=== PATIENT | female | born 1980 | race African-American/Black ===

== ENCOUNTER 2018-08-22 00:16 | Outpatient (CLI) | payer MEDICAID ==
[2018-08-22 01:33] LABS: APPEARANCE,URINE CLEAR; BILIRUBIN,URINE NEGATIVE (NEGATIVE); COLOR,URINE YELLOW; GLUCOSE, URINE NEGATIVE (NEGATIVE); KETONES,URINE NEGATIVE (NEGATIVE); LEUKOCYTE ESTERASE,URINE NEGATIVE (NEGATIVE); NITRITE,URINE NEGATIVE (NEGATIVE); PROTEIN,URINE NEGATIVE (NEGATIVE); URINE SPECIFIC GRAVITY 1.009
[2018-08-22] MEDS ORDERED: RINGERS SOLUTION,LACTATED 1,000 ML IV PRN (01:36)
[2018-08-22 01:45] LABS: URINE AMPHETAMINES SCREEN NEGATIVE; URINE BARBITURATES SCREEN NEGATIVE; URINE BENZODIAZEPINES SCREEN NEGATIVE; URINE COCAINE SCREEN NEGATIVE; URINE MARIJUANA (THC) SCREEN NEGATIVE; URINE METHADONE SCREEN NEGATIVE; URINE PHENCYCLIDINE SCREEN NEGATIVE
[2018-08-22] MEDS ORDERED: HYDROXYZINE PAMOATE 50 MG CAPSULE PO ONE (01:50)
== END 2018-08-22 02:58 | disposition home or self-care (01) ==
LOC: LC 00:16
PROVIDERS: ATTEND Obstetrics & Gynecology
PROC: 4A1HXCZ Monitoring of Products of Conception, Cardiac Rate, External Approach (ICD-10-PCS; principal; 2018-08-22)
DX: O13.3 Gestational [pregnancy-induced] hypertension without significant proteinuria, third trimester (principal); O09.523 Supervision of elderly multigravida, third trimester; Z3A.35 35 weeks gestation of pregnancy
CPT/HCPCS: 80307; 81001

== ENCOUNTER 2019-04-10 08:42 | Emergency (ER) | payer MEDICAID ==
[2019-04-10 08:50] VITALS: BP 139/89
--- NOTE | 2019-04-10 09:21 | ER Document Report ---
HPI - HPI Time Seen by Provider: 04/10/19 09:08 Pain Level: Denies Notes: Patient is a 38-year-old female no significant past medical history who presents complaining of a rash to her trunk and minimally to her upper extremities that is been present for the past couple weeks. Patient states that the rash does itch without any abscess or purulent discharge. Patient states that she did change her laundry detergent about the same time the rash started, but is not aw are of any other new chemicals, soaps, foods, or insect bites. No recent illness. She is able to eat and drink without difficulty. She is urinating normally and having normal bowel movements. Denies any tick bites. Denies any STD or STI. She does not take any medicines daily. Denies any headache, fever, neck pain, URI, sore throat, chest pain, palpitations, syncope, cough, shortness of breath, wheeze, dyspnea, abdominal pain, nausea/vomiting/diarrhea, urinary retention, dysuria, hematuria, or joint pains. - ROS Systems Reviewed and Negative: Yes All other systems reviewed and negative - REPRODUCTIVE Reproductive: DENIES: : Past Medical History - Social History Smoking Status: Never Smoker Family History: Reviewed & Not Pertinent Vertical Provider Document - CONSTITUTIONAL Agree With Documented VS: Yes Notes: PHYSICAL EXAMINATION: GENERAL: Well-appearing, well-nourished and in no acute distress. HEAD: Atraumatic, normocephalic. EYES: Pupils equal round and reactive to light, extraocular movements intact, sclera anicteric, conjunctiva are normal. ENT: Nares patent and without discharge. oropharynx clear without exudates. No tonsilar hypertrophy or erythema. Moist mucous membranes. NECK: Normal range of motion, supple without lymphadenopathy LUNGS: Breath sounds clear to auscultation bilaterally and equal. No wheezes rales or rhonchi. HEART: Regular rate and rhythm without murmurs, rubs, gallops. ABDOMEN: Soft, nontender, nondistended abdomen. No guarding, no rebound. Normal bowel sounds present. No CVA tenderness bilaterally. Musculoskeletal: FROM to passive/active. Strength 5+/5. Extremities: No cyanosis, clubbing, or edema b/l. Peripheral pulses 2+. Capillary refill less than 3 seconds. NEUROLOGICAL: Cranial nerves grossly intact. Normal speech, normal gait. Normal sensory, motor exams PSYCH: Normal mood, normal affect. SKIN: Dry, mildly erythemic macular round lesions noted merrily to the anterior trunk with scant spots to the bilateral arms and upper back. No induration, fluctuance, tenderness, discharge, sloughing of skin, blistering, necrosis. - INFECTION CONTROL TRAVEL OUTSIDE OF THE [place] IN LAST 30 DAYS: No Course - Re-evaluation Re-evalutation: 04/10/19 09:19 Patient is an afebrile, well-hydrated, 38-year-old female who presents with a nonspecific skin rash, possible dermatitis vs erythema multiforme. Vitals are acceptable without significant tachycardia, tachypnea, or hypoxia. PE is otherwise unremarkable. Patient is nontoxic-appearing and is tolerating p.o. without difficulty. No work-up warranted at this time. Low suspicion for any necrotizing fasciitis, SJS, SSS, drug reaction, sepsis, meningitis, syphilis, Lyme disease, [place] spotted fever, or other systemic emergent condition at this time. Patient aware that condition can change from initial presentation and she needs to monitor symptoms closely and seek medical attention with any acute changes. Recheck with your PCM in 2 to 3 days. Schedule consult with d ermatology. Return to the ED with any other worsening/concerning symptoms as reviewed. Patient is in agreement. - Vital Signs Vital signs: Temp Pulse Resp BP Pulse Ox 97.7 F 62 20 139/89 H 98 04/10/19 08:45 04/10/19 08:45 04/10/19 08:45 04/10/19 08:45 04/10/19 08:45 Discharge - Discharge Clinical Impression: Rash and nonspecific skin eruption Condition: Stable Disposition: HOME, SELF-CARE Additional Instructions: Keep the skin clean Wash with mild soap and water Triple antibiotic ointment daily if there is any break in the skin Take medication as directed Monitor for any worsening symptoms Recheck with your PCM in 2-3 days Schedule an appointment with dermatology* Return to the ED with any worsening symptoms and/or development of fever, headache, chest pain, palpitations, syncope, shortness of breath, trouble breathing, abdominal pain, n/v/d, abscess, purulent discharge, red streaks, worsening swelling, or other worsening symptoms that are concerning to you. Prescriptions: Prednisone [Deltasone 10 mg Tablet] 10 mg PO DAILY #18 tablet Forms: Elevated Blood Pressure Referrals: FLORENTIN MANCERA DO [ACTIVE STAFF] - Follow up in 3-5 days
== END 2019-04-10 09:36 | disposition home or self-care (01) ==
LOC: ER 08:42
DX: R21 Rash and other nonspecific skin eruption (principal)
CPT/HCPCS: 99282